=== PATIENT | male | born 1965 | race Caucasian/White ===

== ENCOUNTER 2021-03-15 18:08 | Emergency (ER) | payer OTHER, SELFPAY ==
--- NOTE | ~2021-03-15 | XR_ITS ---
EXAMINATION: XR finger 1st LT min 2V DATE: 03/15/2021 18:33 INDICATION: Left thumb laceration. TECHNIQUE: 3 views of left thumb were obtained. COMPARISON: None. FINDINGS: Bone alignment is normal. No fracture. There is mild osteoarthritis of first carpometacarpa l joint, first metacarpophalangeal joint, and first interphalangeal joint. IMPRESSION: 1. Mild polyarticular osteoarthritis. Reviewed, dictated and finalized at location A.
[2021-03-15 18:09] VITALS: BP 136/79; PULSE 85; RESP 14; TEMP 36.9; O2SAT 99
--- NOTE | 2021-03-15 18:34 | ED.WOUNDLAC ---
HPI - Wound/Laceration General Chief Complaint: Wound/Laceration Stated Complaint: l thumb lac Time Seen by Provider: 03/15/21 18:17 Source: patient Mode of arrival: ambulatory Limitations: no limitations History of Present Illness HPI narrative: This is a 56 year old male that presents to the ER for laceration to the left thumb sustained just prior to arrival. Reports he was using a utility knife and accidentally cut his finger. Reports bleeding and pain to the area. Denies decreased ROM or numbness. Related Data Home Medications Medication Instructions Recorded Confirmed bupropion HCl 200 mg tablet,12 hr 200 mg PO BID 07/03/19 01/30/21 sustained-release dextroamphetamine-amphetamine 10 10 mg PO TID 07/03/19 01/30/21 mg tablet Allergies Allergy/AdvReac Type Severity Reaction Status Date / Time No Known Drug Allergies Allergy Mild nkda Verified 03/15/21 18:21 Review of Systems Review of Systems: CONSTITUTIONAL: Denies fever SKIN: Reports laceration MUSCULOSKELETAL: Denies joint pain, or myalgia. NEUROLOGIC: Denies numbness All systems reviewed & are unremarkable except as noted in HPI and below PMFSH Past Medical History Medical History (Updated 03/15/21 @ 19:47 by Yvette Rico PA-C) BMI 27.0-27.9,adult Encounter for preventive health examination Encounter for routine adult health examination without abnormal findings Encounter for special screening examination for neoplasm of prostate Erectile dysfunction Hx of type 2 diabetes mellitus Hyperlipidemia On ferry terminal agent drug therapy Skin cancer screening Testicular dysfunction Vitamin B deficiency Vitamin D deficiency Surgical History Surgical History H/O gastric bypass H/O repair of right rotator cuff H/O vasectomy Family History Family History Father Family history of congenital heart disease Acute myocardial infarction Family history of coronary artery disease Grandparent Family history of arthritis Mother Family history of primary malignant neoplasm of liver Family history of malignant neoplasm of breast Family history of malignant neoplasm of breast in first degree relative Social History Social History Smoking status: Never smoker Second hand tobacco smoke exposure: No Alcohol intake: current Gender identity (if verbalized by the patient): Male Exam Narrative: GENERAL: Well-appearing, well-nourished, and in no acute distress. HEAD: Normocephalic, atraumatic. EYES: EOMI. EXTREMITIES: Normal range of motion. No edema. Left first finger distal phalanx with 1.5cm linear laceration into subcutaneous tissue with small portion of the distal nail involved SKIN: Warm, dry, no rash. NEURO: No focal deficits. Alert and oriented x3. PSYCH: Normal mood and affect Course Vital Signs Vital signs: Vital Signs Temperature 98.4 F 03/15/21 18:09 Pulse Rate 85 03/15/21 18:09 Respiratory Rate 14 03/15/21 18:09 Blood Pressure 136/79 03/15/21 18:09 Pulse Oximetry 99 03/15/21 18:09 Temperature 98.4 F 03/15/21 18:09 Pulse Rate 85 03/15/21 18:09 Respiratory Rate 14 03/15/21 18:09 Blood Pressure 136/79 03/15/21 18:09 Pulse Oximetry 99 03/15/21 18:09 Procedures Laceration Laceration 1: Date: 03/15/21 Time: 19:42 Site: hand Side (If applicable): left Size (cm): 1.5 Description: flap Depth: simple, single layer Local Anesthetic: lidocaine 1% Amount of anesthesia used (mL): 2 Pre-repair: irrigated ====== Skin Level ====== Skin layer closed with: nylon Size (cm): 4-0 Number of sutures: 2 Technique: simple, interrupted ====== Subcutaneous Layer ====== ====== Muscle Layer ====== ====== Tendon Layer ====== [facility]
[2021-03-15] MEDS: TETANUS,DIPHTHERIA,AC PERTUSSIS ADULT (0.5 ML) BOOSTRIX IM (18:56)
[2021-03-15 20:12] VITALS: BP 117/80; PULSE 78; RESP 14; O2SAT 100
== END 2021-03-15 20:02 | disposition home or self-care (01) ==
PROVIDERS: Emergency Provider Emergency Medicine; PCP Internal Medicine
DX: S61.012A Laceration without foreign body of left thumb without damage to nail, initial encounter (principal); E11.9 Type 2 diabetes mellitus without complications; E78.5 Hyperlipidemia, unspecified; E53.9 Vitamin B deficiency, unspecified; E55.9 Vitamin D deficiency, unspecified; M18.9 Osteoarthritis of first carpometacarpal joint, unspecified; Z23 Encounter for immunization; Z79.82 Long term (current) use of aspirin; W27.0XXA Contact with workbench tool, initial encounter
CPT/HCPCS: 12001; 73140; 90471; 90715; 99283

== ENCOUNTER → 2021-10-23 09:52 | Outpatient (CLI) | payer OTHER, SELFPAY ==
--- NOTE | ~2021-10-23 | XR_ITS ---
EXAMINATION: XR sacroiliac joints min 3V DATE: 10/23/2021 10:25 INDICATION: Sacrococcygeal disorders, not elsewhere classified. Pelvic pain. TECHNIQUE: 3 views of the sacrum and coccyx were obtained. COMPARISON: None. FINDINGS: There is lumbar dextroscoliosis and severe spondylosis. No fracture. There is mild osteoart hritis of the sacroiliac joints. IMPRESSION: 1. Mild osteoarthritis of the sacroiliac joints. Reviewed, dictated and finalized at location A.
--- NOTE | ~2021-10-23 | XR_ITS ---
XR lumbar spine min 4V DATE: 10/23/2021 10:25 INDICATION: Back pain TECHNIQUE: AP, lateral, coned lateral lumbosacral views. Flexion and extension upright lateral views COMPARISON: None FINDINGS: There is mild rotatory dextro scoliosis of the lumbar spine. Diffuse osteopenia. Degenerative spurring of the lower thoracic spine. There are 6 functional lumbar vertebrae. No fracture or bone destruction of the lumbar spine is evident. The lumbar pedicles are intact. Moderate degenerative disc disease of the lumbar spine; moderately severe degenerative disease at the lumbosacral articulation. No instability on flexion or extension is evident. The sacroiliac joints are intact. Sutures and clips are noted overlying the left upper quadrant of the abdomen. IMPRESSION: Diffuse osteopenia Mild rotatory dextroscoliosis Moderate to moderately severe degenerative disc disease of the lumbar spine Reviewed, dictated and finalized at location A.
== END ==
PROVIDERS: PCP Internal Medicine; Visit Provider Internal Medicine
DX: M47.28 Other spondylosis with radiculopathy, sacral and sacrococcygeal region (principal); M47.26 Other spondylosis with radiculopathy, lumbar region; R20.0 Anesthesia of skin; M41.9 Scoliosis, unspecified
CPT/HCPCS: 72110; 72202

== ENCOUNTER 2022-02-08 09:45 | Observation (INO) | payer OTHER, SELFPAY ==
[2022-02-08] VITALS (7 sets, daily range): BP systolic 127–153; BP diastolic 77–99; PULSE 66–90; RESP 16–19; TEMP 36.2–36.7; O2SAT 98–100; BMI 26.4
--- NOTE | ~2022-02-08 | CT_ITS ---
EXAMINATION: CT abdomen pelvis w con DATE: 02/08/2022 10:29 INDICATION: Left upper quadrant abdominal pain, dark tarry stool. History of gastric bypass. TECHNIQUE: Computed tomography (CT) of the abdomen and pelvis was performed with 100 CC Omnipaque 300 intravenous contrast. Automated exposure control and iterative reconstruction technique were employe d. Exam dose: 536.32 mGy-cm total exam DLP. COMPARISON: 05/18/2009 CT renal scan FINDINGS: The lung bases are clear of infiltrate or consolidation. Normal heart size. No pericardial or pleural effusion. Small stones are suggested at the dependent aspect of the gallbladder. No gallbladder wall thickening or pericholecystic fluid or fat stranding. No hepatic space-occupying mass lesion. No bile duct dila tation. Normal splenic size. No pancreatic mass lesion, calcification or ductal dilatation. Normal morphology of the adrenal glands. Mid left renal 1.6 mm nonobstructing left kidney stone. A couple of small renal cysts measuring up to 4 mm are noted. No renal mass lesions are noted otherwise. No ureteral calculus or hydroureteronephr osis is noted on either side. The urinary bladder is unremarkable. Prostate gland appears unremarkabl e. Normal caliber of the abdominal aorta. No intraperitoneal or retroperitoneal or pelvic mass lesion or adenopathy or ascites is detected. Postoperative change from gastric bypass surgery. No bowel obstruction or intraperitoneal free air. Small fat-containing umbilical hernia. Degenerative changes of the thoracic and lumbar spine. No suspicious osteolytic or osteoblastic lesio ns. IMPRESSION: Status post gastric bypass Probable cholelithiasis 1.6 mm nonobstructing left renal cyst 4 mm smaller left renal cysts Reviewed, dictated and finalized at [facility]. Reviewed, dictated and finalized at location A.
[2022-02-08 10:00] LABS: Basophils Absolute Auto 0.1 K/mm3 (0.0-0.1); Basophils Percent Auto 0.9 % (0.2-1.2); Eosinophils Absolute Auto 0.2 K/mm3 (0-0.3); Eosinophils Percent Auto 2.6 % (0-4.4); Hematocrit 37.3 % (42.0-52.0); Hemoglobin 11.9 g/dL (14.0-18.0); Immature Granulocyte Absolute 0.02 K/mm3 (0.00-0.031); Immature Granulocyte Percent A 0.3 % (0-0.5); Lymphocytes Absolute Auto 1.88 K/mm3 (0.9-3.2); Lymphocytes Percent Auto 28.8 % (18.3-44.2); Mean Corpuscular HGB Conc 31.9 g/dl (32-36); Mean Corpuscular Hemoglobin 31.7 pg (26-34); Mean Corpuscular Volume 99.5 fl (80-100); Mean Platelet Volume 9.5 fl (7.4-10.4); Monocytes Absolute Auto 0.4 K/mm3 (0.1-0.6); Monocytes Percent Auto 5.7 % (2.6-8.5); Neutrophils Percent Auto 61.7 % (45.5-73.1); Platelet Count Result 249 k/mm3 (150-375); Red Blood Count 3.75 M/mm3 (4.6-6.20); White Blood Count 6.5 K/mm3 (4.5-10.0)
[2022-02-08 10:11] LABS: INR 1.2; Prothrombin Time 14.3 Seconds (11.1-14.7)
[2022-02-08 10:12] LABS: Alanine Aminotransferase 34 U/L (6-50); Albumin Level 4.3 g/dL (3.5-5.1); Alkaline Phosphatase 63 U/L (38-126); Anion Gap 7 mmol/L (8-16); Aspartate Amino Transferase 39 U/L (17-59); Bilirubin,Total 0.4 mg/dL (0.2-1.3); Blood Urea Nitrogen 27 mg/dL (9-20); Calcium 8.9 mg/dL (8.4-10.2); Carbon Dioxide 26 mmol/L (22-30); Chloride 105 mmol/L (98-107); Estimated CRCL calculation 84 ml/min; Estimated Glomerular Filt Rate > 60; Glucose 89 mg/dL (65-110); Partial Thromboplastin Time 28.8 SECONDS (22.3-36.8); Potassium 4.6 mmol/L (3.4-5.0); Sodium 138 mmol/L (137-145)
--- NOTE | 2022-02-08 10:12 | ED.GENADULT ---
HPI - General Adult General Chief complaint: GI Bleed Stated complaint: sent by PCP Time Seen by Provider: 02/08/22 09:54 History of Present Illness HPI narrative: 57-year-old male history of gastric bypass presenting to the emergency department for evaluation of left upper quadrant pain and 2 days of dark tarry stools. Patient states he was in [place] and started developing some left upper quadrant pain. Patient describes it as a gnawing pain that was improved with food. Patient did take a Pepcid today. Patient does not take any Pepcid or Prilosec daily. Patient states that yesterday morning he began noticing some dark tarry stools and that it progressed throughout the day and into today. Patient denies any current abdominal pain. Patient does take a daily aspirin. Patient also takes Celebrex and has been increasing his Celebrex dose due to more frequent sciatic pain. Patient does have a history of a gastric bypass done in 2007. Patient denies any prior history of GI bleed. Related Data Home Medications Medication Instructions Recorded Confirmed bupropion HCl 200 mg tablet,12 hr 200 mg PO BID 07/03/19 02/08/22 sustained-release dextroamphetamine-amphetamine 10 10 mg PO TID 07/03/19 02/08/22 mg tablet (Adderall) atorvastatin 20 mg tablet 20 mg PO DAILY 02/08/22 02/08/22 calcium citrate 1,000 mg tablet 1,000 mg PO BID 02/08/22 02/08/22 celecoxib 200 mg capsule 200 mg PO BID 02/08/22 02/08/22 cetirizine 10 mg capsule (Zyrtec) 10 mg PO HS 02/08/22 02/08/22 icosapent ethyl 1 gram capsule 1 g PO BID 02/08/22 02/08/22 (Vascepa) mirtazapine 15 mg tablet 15 mg PO HS 02/08/22 02/08/22 multivitamin with minerals 1 tablet PO DAILY 02/08/22 02/08/22 multivitamin with minerals-folic tablet PO 02/08/22 acid 0.4 mg tablet Allergies Allergy/AdvReac Type Severity Reaction Status Date / Time morphine AdvReac Other Verified 02/08/22 09:59 Review of Systems Review of Systems: CONSTITUTIONAL: Denies fever, chills, or sweats. EYES: Denies visual changes, redness, or discharge. ENT: Denies rhinorrhea, congestion, sore throat, or otalgia. CARDIOVASCULAR: Denies chest pain, palpitations, or edema. RESPIRATORY: Denies cough or dyspnea. GASTROINTESTINAL: See HPI GENITOURINARY: Denies dysuria or hematuria. SKIN: Denies rash or itching. MUSCULOSKELETAL: Denies back pain, joint pain, or myalgia. NEUROLOGIC: Denies headache, numbness, or weakness. [facility] Past Medical History Medical History (Updated 02/08/22 @ 10:57 by Juventino Gaona MD) Anxiety BMI 25.0-25.9,adult BMI 27.0-27.9,adult Elevated glucose Encounter for preventive health examination Encounter for routine adult health examination without abnormal findings Encounter for special screening examination for neoplasm of prostate Erectile dysfunction History of stress test (~1997) Hx of type 2 diabetes mellitus Hyperlipidemia Impingement syndrome of right shoulder Iron deficiency Lumbar radiculopathy On senior living drug therapy Skin cancer screening Testicular dysfunction Vitamin B deficiency Vitamin D deficiency Surgical History Surgical History H/O gastric bypass (~12/2007) H/O vasectomy History of repair of left rotator cuff (~09/2013) Family History Family History Father Family history of congenital heart disease Acute myocardial infarction Family history of coronary artery disease Grandparent Family history of arthritis Mother Family history of primary malignant neoplasm of liver Family history of malignant neoplasm of breast Family history of malignant neoplasm of breast in first degree relative Unknown Cerebrovascular accident Social History Social History Smoking status: Never smoker Second hand tobacco smoke exposure: No Alcohol intake: current Drinks per week: 14 S
[2022-02-08] MEDS: SODIUM CHLORIDE 0.9% IV 1,000 ML 999 ML IV CONT (10:35)
[2022-02-08] MEDS: PANTOPRAZOLE SODIUM IV 40 MG VIAL 80 MG IV PUSH (10:35)
--- NOTE | 2022-02-08 13:26 | PM.IMHP ---
H&P: HPI History of Present Illness Date/Time: 02/08/22 13:26 Chief Complaint: Dark tarry stool Narrative: 57-year-old male with past medical history of gastric bypass presents to the ED with left upper quadrant and 2 days history dark tarry stool. He went to [facility] for vacation where he developed a left upper quadrant pain which was related to hunger and food made it better. Associated nausea but no vomiting. Two days ago he started having dark tarry stool. His been taking Celebrex every day since past 3 months for his right sciatic pain. He also was drinking during his vacation and also drinks 2 drinks every day since wall. Is status post gastric bypass in 2007. He also eats spicy food. He took some Tums when he got to the airport which helped relieve some of his pain. He denies any lightheadedness and dizziness he felt bloated and distended and hence came to the ER for evaluation. He is using his was down to Eleven and his normal is 15 as revealed in his laboratory data. No prior history of GI bleed. Review of Systems Review of Systems: - CONSTITUTIONAL: Denies weight loss, fever and chills. - HEENT: Denies changes in vision and hearing - RESPIRATORY: Denies SOB and cough. - CV: Denies palpitations and CP. - GI: Reports abdominal pain, nausea, denies vomiting and diarrhea. reports dark tarry stool - : Denies dysuria and urinary frequency. - MSK: Denies myalgia and joint pain. - SKIN: Denies rash and pruritus. - NEUROLOGICAL: Denies headache and syncope. - PSYCHIATRIC: Denies recent changes in mood. Denies anxiety and depression. [facility] Past Medical History Medical History (Updated 02/08/22 @ 10:57 by Juventino Gaona MD) Anxiety BMI 25.0-25.9,adult BMI 27.0-27.9,adult Elevated glucose Encounter for preventive health examination Encounter for routine adult health examination without abnormal findings Encounter for special screening examination for neoplasm of prostate Erectile dysfunction History of stress test (~1997) Hx of type 2 diabetes mellitus Hyperlipidemia Impingement syndrome of right shoulder Iron deficiency Lumbar radiculopathy On watermaster drug therapy Skin cancer screening Testicular dysfunction Vitamin B deficiency Vitamin D deficiency Surgical History Surgical History H/O gastric bypass (~12/2007) H/O vasectomy History of repair of left rotator cuff (~09/2013) Family History Family History Father Family history of congenital heart disease Acute myocardial infarction Family history of coronary artery disease Grandparent Family history of arthritis Mother Family history of primary malignant neoplasm of liver Family history of malignant neoplasm of breast Family history of malignant neoplasm of breast in first degree relative Unknown Cerebrovascular accident Social History Social History Smoking status: Never smoker Second hand tobacco smoke exposure: No Alcohol intake: current Drinks per week: 14 Substance use: never Substance use type: does not use Gender identity (if verbalized by the patient): Male Spiritual care concerns: No Meds Home Medications and Allergies Home Medications Medication Instructions Recorded Confirmed Type aspirin 81 mg tablet,delayed 81 mg PO DAILY #90 tabs 07/03/19 02/08/22 Rx release (Adult Aspirin Regimen) bupropion HCl 200 mg tablet,12 hr 200 mg PO BID 07/03/19 02/08/22 History sustained-release dextroamphetamine-amphetamine 10 10 mg PO TID 07/03/19 02/08/22 History mg tablet (Adderall) docusate sodium 100 mg capsule 100 mg PO BID #90 caps 07/03/19 02/08/22 Rx ferrous sulfate 325 mg (65 mg 325 mg PO DAILY #90 tabs 07/03/19 02/08/22 Rx iron) tablet mecobalamin (vitamin B12) 1,000 1,000 mcg sublingual DAILY #90 tabs
[2022-02-08 15:11] LABS: Hemoglobin 10.9 g/dL (14.0-18.0)
[2022-02-08 15:19] LABS: Lipase 110 U/L (23-300)
[2022-02-08] MEDS: buPROPion HCL SR (12HR) 100 MG TABCR 200 MG PO (21:18)
[2022-02-08] MEDS: MIRTAZAPINE 15 MG TABLET PO (21:18)
[2022-02-08] MEDS: SODIUM CHLORIDE 0.9% IV 1,000 ML 125 ML IV CONT (21:24)
[2022-02-08 23:17] LABS: Hematocrit 35.6 % (42.0-52.0); Hemoglobin 11.8 g/dL (14.0-18.0)
[2022-02-09] MEDS: SODIUM CHLORIDE 0.9% IV 1,000 ML 125 ML IV CONT ×2 (05:34→17:22)
[2022-02-09 05:36] VITALS: BP 128/73; PULSE 68; RESP 20; TEMP 36.3; O2SAT 100
[2022-02-09 06:12] LABS: Basophils Absolute Auto 0.1 K/mm3 (0.0-0.1); Basophils Percent Auto 1.2 % (0.2-1.2); Eosinophils Absolute Auto 0.2 K/mm3 (0-0.3); Eosinophils Percent Auto 3.7 % (0-4.4); Hematocrit 34.1 % (42.0-52.0); Hemoglobin 11.2 g/dL (14.0-18.0); Lymphocytes Absolute Auto 2.02 K/mm3 (0.9-3.2); Mean Corpuscular HGB Conc 32.8 g/dl (32-36); Mean Corpuscular Hemoglobin 32.4 pg (26-34); Mean Corpuscular Volume 98.6 fl (80-100); Monocytes Absolute Auto 0.4 K/mm3 (0.1-0.6); Monocytes Percent Auto 7.3 % (2.6-8.5); Neutrophils Absolute Auto 2.2 K/mm3 (1.3-6.7); Neutrophils Percent Auto 45.8 % (45.5-73.1); Platelet Count Result 216 k/mm3 (150-375); Red Blood Count 3.46 M/mm3 (4.6-6.20); Red Cell Distribution Width 15.3 % (11.5-14.5); White Blood Count 4.8 K/mm3 (4.5-10.0)
[2022-02-09 06:30] LABS: Alanine Aminotransferase 32 U/L (6-50); Albumin Level 3.6 g/dL (3.5-5.1); Alkaline Phosphatase 53 U/L (38-126); Anion Gap 4 mmol/L (8-16); Aspartate Amino Transferase 36 U/L (17-59); Bilirubin,Total 0.5 mg/dL (0.2-1.3); Blood Urea Nitrogen 14 mg/dL (9-20); Calcium 8.4 mg/dL (8.4-10.2); Carbon Dioxide 28 mmol/L (22-30); Chloride 108 mmol/L (98-107); Estimated CRCL calculation 84 ml/min; Estimated Glomerular Filt Rate > 60; Glucose 91 mg/dL (65-110); Magnesium 2.3 mg/dL (1.6-2.3); Potassium 4.3 mmol/L (3.4-5.0); Sodium 140 mmol/L (137-145)
--- NOTE | 2022-02-09 11:32 | WPDGICN ---
Assessment and Plan Assessment and plan (1) Melena: Code(s): K92.1 - Melena Status: Acute Assessment and Plan: Patient presents with black melenic stools. Confirmed to be Hemoccult-positive. Associated with mild decline in hemoglobin. Most suspicious for upper GI bleeding source. Patient has had some associated abdominal pain. Risk factors including use of Celebrex. Plan is for EGD to assess more thoroughly. Status of gastric bypass will be assessed at the same time. (2) H/O gastric bypass: Onset Date: ~12/2007 Code(s): Z98.84 - Bariatric surgery status Status: Acute Assessment and Plan: Patient has a distant history of gastric bypass surgery is done well with it. It is uncertain how this is associated with his recent melenic stools. Further evaluation after endoscopy. GI Consult Note Consult date/time: 02/09/22 11:32 Reason for consult: Blood in stool. HPI: Reagan Mane is a 57 year old male Presented to the emergency room last evening because of melenic stools. Patient has a distant history of a gastric bypass in 2007. Recently on vacation in [place]. Patient developed left upper quadrant and pain over about 5 day interval. Because of this he took Pepcid. He states the pain improved on eating. On Wednesday 2 days ago patient began to have black melenic stools. Patient has been on iron previously. He takes aspirin on a daily basis. Because of see attic pain he has been taking Celebrex. His family history is noncontributory. Upon presenting the emergency room was found have Hemoccult-positive stools and a mild decline in hemoglobin. Patient was admitted for further evaluation. Review of Systems Review of Systems: Review of systems noncontributory. [facility] Past Medical History Medical History (Updated 02/09/22 @ 11:35 by Pipe Crump MD) Anxiety BMI 25.0-25.9,adult BMI 27.0-27.9,adult Elevated glucose Encounter for preventive health examination Encounter for routine adult health examination without abnormal findings Encounter for special screening examination for neoplasm of prostate Erectile dysfunction History of stress test (~1997) Hx of type 2 diabetes mellitus Hyperlipidemia Impingement syndrome of right shoulder Iron deficiency Lumbar radiculopathy On correction drug therapy Skin cancer screening Testicular dysfunction Vitamin B deficiency Vitamin D deficiency Surgical History Surgical History H/O gastric bypass (~12/2007) H/O vasectomy History of repair of left rotator cuff (~09/2013) Family History Family History Father Family history of congenital heart disease Acute myocardial infarction Family history of coronary artery disease Grandparent Family history of arthritis Mother Family history of primary malignant neoplasm of liver Family history of malignant neoplasm of breast Family history of malignant neoplasm of breast in first degree relative Unknown Cerebrovascular accident Social History Social History Smoking status: Never smoker Second hand tobacco smoke exposure: No Alcohol intake: current Drinks per week: 14 Substance use: never Substance use type: does not use Gender identity (if verbalized by the patient): Male Spiritual care concerns: No Meds Home Medications and Allergies Home Medications Medication Instructions Recorded Confirmed Type aspirin 81 mg tablet,delayed 81 mg PO DAILY #90 tabs 07/03/19 02/08/22 Rx release (Adult Aspirin Regimen) bupropion HCl 200 mg tablet,12 hr 200 mg PO BID 07/03/19 02/08/22 History sustained-release dextroamphetamine-amphetamine 10 10 mg PO TID 07/03/19 02/08/22 History mg tablet (Adderall) docusate sodium 100 mg capsule 100 mg PO BID #90 caps 07/03/19 02/08/22 Rx ferr
[2022-02-09 12:53] VITALS: BP 138/71; PULSE 74; RESP 18; TEMP 36.4; O2SAT 100
[2022-02-09] MEDS: LACTATED RINGERS 1,000 ML 150 ML IV CONT (13:07)
--- NOTE | 2022-02-09 13:23 | WPDANESEPPF ---
Anes - Initial Pre Proc Eval Procedure: Operation Date: 02/09/22 13:30 Proposed Procedures p Esophagogastroduodenoscopy - Pipe Crump MD Date/Time: 02/09/22 13:23 Surgeon: Steven Hauser MD Pre Op Diagnosis: Upper GI Bleed Patient Data Age: 57 Gender: M Height: 1.78 m Weight: 83.5 kg Last Vital Signs Temp 97.6 F 02/09/22 12:53 Pulse 74 02/09/22 12:53 Resp 18 02/09/22 12:53 BP 138/71 02/09/22 12:53 Pulse Ox 100 02/09/22 12:53 O2 Del Method Room Air 02/09/22 12:53 Allergies Allergy/AdvReac Type Severity Reaction Status Date / Time morphine AdvReac Other Verified 02/09/22 13:03 Home Medications Medication Instructions Recorded Confirmed Type aspirin 81 mg tablet,delayed 81 mg PO DAILY #90 tabs 07/03/19 02/09/22 Rx release (Adult Aspirin Regimen) bupropion HCl 200 mg tablet,12 hr 200 mg PO BID 07/03/19 02/09/22 History sustained-release dextroamphetamine-amphetamine 10 10 mg PO TID 07/03/19 02/09/22 History mg tablet (Adderall) docusate sodium 100 mg capsule 100 mg PO BID #90 caps 07/03/19 02/09/22 Rx ferrous sulfate 325 mg (65 mg 325 mg PO DAILY #90 tabs 07/03/19 02/09/22 Rx iron) tablet mecobalamin (vitamin B12) 1,000 1,000 mcg sublingual DAILY #90 tabs 07/03/19 02/09/22 Rx mcg disintegrating tablet,sublingual thiamine HCl (vitamin B1) 100 mg 100 mg PO DAILY #90 tabs 07/03/19 02/09/22 Rx tablet tramadol 50 mg tablet 50 mg PO Q6H #30 tabs 01/15/22 02/09/22 Rx atorvastatin 20 mg tablet 20 mg PO DAILY 02/08/22 02/09/22 History calcium citrate 1,000 mg tablet 1,000 mg PO BID 02/08/22 02/09/22 History celecoxib 200 mg capsule 200 mg PO BID 02/08/22 02/09/22 History cetirizine 10 mg capsule (Zyrtec) 10 mg PO HS 02/08/22 02/09/22 History icosapent ethyl 1 gram capsule 1 g PO BID 02/08/22 02/09/22 History (Vascepa) mirtazapine 15 mg tablet 15 mg PO HS 02/08/22 02/09/22 History multivitamin with minerals 1 tablet PO DAILY 02/08/22 02/09/22 History sildenafil 100 mg tablet 100 mg PO DAILY 02/08/22 02/09/22 History Laboratory Tests 02/08/22 02/08/22 02/08/22 15:05 15:05 23:01 WBC RBC Hgb 10.9 g/dL L g/dL 11.8 g/dL L g/dL (14.0-18.0) (14.0-18.0) Hct 34.0 % L % 35.6 % L % (42.0-52.0) (42.0-52.0) MCV MCH MCHC RDW Plt Count MPV Immature Gran % (Auto) Neut % (Auto) Lymph % (Auto) [place] % (Auto) Eos % (Auto) Baso % (Auto) Lymph # (Auto) [place] # (Auto) Eos # (Auto) Baso # (Auto) Abs Immat Gran (auto) Absolute Neuts (auto) Absolute Nucleated RBC Nucleated RBC % Sodium Potassium Chloride Carbon Dioxide Anion Gap BUN Creatinine Estim Creat Clear Calc Estimated GFR Glucose Calcium Magnesium Total Bilirubin AST ALT Alkaline Phosphatase Total Protein Albumin Lipase 110 U/L U/L (23-300) 02/09/22 02/09/22 05:27 05:27 WBC 4.8 K/mm3 K/mm3 (4.5-10.0) RBC 3.46 M/mm3 L M/mm3 (4.6-6.20) Hgb 11.2 g/dL L g/dL (14.0-18.0) Hct 34.1 % L % (42.0-52.0) MCV 98.6 fl fl (80-100) MCH 32.4 pg pg (26-34) MCHC 32.8 g/dl g/dl (32-36) RDW 15.3 % H % (11.5-14.5) Plt Count 216 k/mm3 k/mm3 (150-375) MPV 10.0 fl fl (7.4-10.4) Immature Gran % (Auto) 0.0 % % (0-0.5) Neut % (Auto) 45.8 % % (45.5-73.1) Lymph % (Auto) 42.0 % % (18.3-44.2) [place] % (Auto) 7.3 % % (2.6-8.5) Eos % (Auto) 3.7 % % (0-4.4) Baso % (Auto) 1.2 % %
[2022-02-09 13:40] VITALS: BP 110/66; PULSE 82; RESP 22; O2SAT 100
[2022-02-09 13:50] VITALS: BP 104/71; PULSE 82; RESP 23; O2SAT 100
[2022-02-09 14:00] VITALS: BP 110/65; BP 127/78; PULSE 80; PULSE 82; RESP 16; RESP 23; TEMP 36.5; O2SAT 100; O2SAT 98
[2022-02-09 15:04] LABS: Hematocrit 34.6 % (42.0-52.0)
--- NOTE | 2022-02-09 18:31 | PM.IMPN ---
Progress Note: A&P Assessment and Plan (1) Acute upper gastrointestinal bleeding: Code(s): K92.2 - Gastrointestinal hemorrhage, unspecified Status: Acute (2) Lumbar radiculopathy: Code(s): M54.16 - Radiculopathy, lumbar region Status: Acute (3) Impingement syndrome of right shoulder: Code(s): M75.41 - Impingement syndrome of right shoulder Status: Acute (4) Hx of type 2 diabetes mellitus: Code(s): Z86.39 - Personal history of other endocrine, nutritional and metabolic disease Status: Acute (5) Hyperlipidemia: Qualifiers: Hyperlipidemia type: mixed hyperlipidemia Qualified Code(s): E78.2 - Mixed hyperlipidemia Code(s): E78.5 - Hyperlipidemia, unspecified Status: Acute (6) H/O gastric bypass: Onset Date: ~12/2007 Code(s): Z98.84 - Bariatric surgery status Status: Acute Plan # Melena/acute GI bleed PPI drip. Likely gastritis/PUD. Stop NSAIDs or Celebrex. Advised against drinking and spicy food. NPO and GI consult monitor H&H. H&H remains stable. Status post EGD 02/09/2022: Previous gastric surgery evidence with Nancy-en-Y. Small adherent clot in gastric remnant at the cardia of the stomach noted with no active bleeding. Monitor H&H and advance diet slowly If stable discharge home likely in a.m. Type 2 diabetes mellitus In remission after gastric bypass surgery Hyperlipidemia on medication which will be continued Lumbar radiculopathy ED HD: On Adderall History of gastric bypass 2007 Chronic use of NSAIDs DVT prophylaxis SCDs Code status full code Discussed with the patient and family at bedside Subjective Date/time seen: 02/09/22 18:31 Interval history: Underwent EGD today with findings noted. No further bowel movement noted reported. Denies any lightheadedness or dizziness. Review of Systems Review of Systems: All systems reviewed & are unremarkable except as noted in HPI and below Exam Narrative: APPEARANCE: Well appearing, no pain, no distress, well-nourished. HEAD: normocephalic, atraumatic. EYES: PERRLA/EOMI, conjunctivae clear. NOSE: Normal no drainage NECK: Supple. No adenopathy, no masses. RESPIRATORY: Airway patent, respirations nonlabored. Clear to auscultation bilaterally, no rales, rhonchi, wheezing. CARDIOVASCULAR: Regular rate and rhythm without murmurs rubs or gallops. ABDOMINAL: Soft, nontender, nondistended, normal bowel sounds MUSCULOSKELETAL: Moves all extremities. Strength/ROM intact, No edema, No calf tenderness. NEURO: Alert. Cranial nerves II through XII intact.? Grossly intact SKIN: Warm, dry. Normal Color Objective Data Vital Signs Vital Signs: Vital Signs - 24 hr 02/08/22 20:00 02/08/22 22:00 02/09/22 05:36 Temperature 97.3 F L 97.3 F L Pulse Rate 66 68 Respiratory Rate 18 20 Blood Pressure 127/79 128/73 Pulse Oximetry 99 100 Oxygen Delivery Room Air 02/09/22 08:00 02/09/22 12:53 02/09/22 13:40 Temperature 97.6 F Pulse Rate 74 82 Respiratory Rate 18 22 H Blood Pressure 138/71 110/66 Pulse Oximetry 100 100 Oxygen Delivery Room Air Room Air Room Air 02/09/22 13:50 02/09/22 14:00 02/09/22 14:00 Temperature 97.7 F Pulse Rate 82 82 80 Respiratory Rate 23 H 23 H 16 Blood Pressure 104/71 110/65 127/78 Pulse Oximetry 100 100 98 Oxygen Delivery Room Air Room Air Intake/Output Intake/Output: Intake & Output 02/06/22 02/07/22 02/08/22 02/09/22 23:59 23:59 23:59 23:59 Intake Total 1000 2950 Output Total 675 3640 Balance 325 -690 Meds/Results Medications: Active Medications Generic Name Dose Route Start Last Admin Trade Name Freq PRN Reason Stop Dose Admin Atorvastatin Calcium 20 mg 02/09/22 09:00 02/09/22 16:19 Atorvastatin 20 Mg Tablet PO Not Given DAILY SUNITA Bupropion HCl 200 mg 02/08/22 21:00 02/09/22 16:19 Bupropion Hcl Sr (12hr) 100 Mg Tabcr PO Not Given Q12HR SUNITA Calcium Carbonate 1,000 mg
[2022-02-09] MEDS: buPROPion HCL SR (12HR) 100 MG TABCR 200 MG PO (21:23)
[2022-02-09] MEDS: MIRTAZAPINE 15 MG TABLET PO (21:23)
[2022-02-09 22:00] VITALS: BP 138/81; PULSE 69; RESP 18; TEMP 36.1; O2SAT 100
[2022-02-10] MEDS: SODIUM CHLORIDE 0.9% IV 1,000 ML 125 ML IV CONT (01:17)
[2022-02-10 04:57] VITALS: BP 126/78; PULSE 73; RESP 20; TEMP 36.4; O2SAT 97
[2022-02-10 05:00] VITALS: BP 126/78; PULSE 73; RESP 20; TEMP 36.1; O2SAT 97
[2022-02-10 06:28] LABS: Basophils Percent Auto 0.9 % (0.2-1.2); Eosinophils Absolute Auto 0.2 K/mm3 (0-0.3); Eosinophils Percent Auto 4.2 % (0-4.4); Hematocrit 32.8 % (42.0-52.0); Hemoglobin 10.3 g/dL (14.0-18.0); Immature Granulocyte Absolute 0.01 K/mm3 (0.00-0.031); Immature Granulocyte Percent A 0.2 % (0-0.5); Lymphocytes Absolute Auto 1.63 K/mm3 (0.9-3.2); Lymphocytes Percent Auto 35.7 % (18.3-44.2); Mean Corpuscular HGB Conc 31.4 g/dl (32-36); Mean Corpuscular Hemoglobin 31.6 pg (26-34); Mean Corpuscular Volume 100.6 fl (80-100); Monocytes Absolute Auto 0.3 K/mm3 (0.1-0.6); Monocytes Percent Auto 7.2 % (2.6-8.5); Neutrophils Absolute Auto 2.4 K/mm3 (1.3-6.7); Neutrophils Percent Auto 51.8 % (45.5-73.1); Platelet Count Result 209 k/mm3 (150-375); Red Blood Count 3.26 M/mm3 (4.6-6.20); White Blood Count 4.6 K/mm3 (4.5-10.0)
[2022-02-10 06:43] LABS: Anion Gap 4 mmol/L (8-16); Blood Urea Nitrogen 20 mg/dL (9-20); Calcium 8.1 mg/dL (8.4-10.2); Carbon Dioxide 26 mmol/L (22-30); Chloride 109 mmol/L (98-107); Estimated CRCL calculation 94 ml/min; Estimated Glomerular Filt Rate > 60; Glucose 96 mg/dL (65-110); Potassium 4.2 mmol/L (3.4-5.0); Sodium 139 mmol/L (137-145)
[2022-02-10] MEDS: PANTOPRAZOLE 40 MG TABLET PO (08:57)
[2022-02-10] MEDS: ATORVASTATIN 20 MG TABLET PO (08:57)
[2022-02-10] MEDS: FERROUS SULFATE 324 MG TABLET PO (08:58)
[2022-02-10] MEDS: THIAMINE HCL 100 MG TABLET PO (08:58)
[2022-02-10] MEDS: buPROPion HCL SR (12HR) 100 MG TABCR 200 MG PO (08:58)
[2022-02-10] MEDS: THERAPEUTIC MULTIVITAMINS/MINERALS TAB (*BKC) 1 TABLET PO (08:58)
--- NOTE | 2022-02-10 12:04 | WPDGIPROGNO ---
Progress Note: A&P Assessment and Plan (1) Acute upper gastrointestinal bleeding: Code(s): K92.2 - Gastrointestinal hemorrhage, unspecified Status: Acute Assessment and Plan: No additional bleeding noted. Hemoglobin the centrally stable. Hemoglobin 11.9 on a presentation. Now after rehydration hemoglobin 10.3. (2) Melena: Code(s): K92.1 - Melena Status: Acute Assessment and Plan: Stools returned to normal color. (3) H/O gastric bypass: Onset Date: ~12/2007 Code(s): Z98.84 - Bariatric surgery status Status: Acute Assessment and Plan: Patient has history of gastric bypass. Small clot adherent to previous stapling in these gastric remnant. Likely this is stigmata from recent GI blood loss. Would not expect significant additional bleeding. Agree with advancing diet. Discharged today if hemoglobin remains stable. Probably best to stay on a PPI therapy for a month. Avoid NSAIDs. Subjective Date/time seen: 02/10/22 12:04 patient comfortable today. Tolerating diet. Denies any bleeding. Stools have returned to normal color. Review of Systems Review of Systems: Review of systems noncontributo Exam Narrative: Physical exam reveals patient to be alert. Vital signs stable. HEENT exam unremarkable. Lungs are clear. Heart without murmur. Abdomen bowel sounds present soft nontender. Objective Data Vital Signs Vital Signs: Vital Signs - 24 hr 02/09/22 12:53 02/09/22 13:40 02/09/22 13:50 Temperature 97.6 F Pulse Rate 74 82 82 Respiratory Rate 18 22 H 23 H Blood Pressure 138/71 110/66 104/71 Pulse Oximetry 100 100 100 Oxygen Delivery Room Air Room Air Room Air 02/09/22 14:00 02/09/22 14:00 02/09/22 20:00 Temperature 97.7 F Pulse Rate 82 80 Respiratory Rate 23 H 16 Blood Pressure 110/65 127/78 Pulse Oximetry 100 98 Oxygen Delivery Room Air Room Air 02/09/22 22:00 02/10/22 04:57 02/10/22 05:00 Temperature 97 F L 97.6 F 97 F L Pulse Rate 69 73 73 Respiratory Rate 18 20 20 Blood Pressure 138/81 126/78 126/78 Pulse Oximetry 100 97 97 Oxygen Delivery Intake/Output Intake/Output: Intake & Output 07/16/22 02/08/22 02/09/22 02/10/22 23:59 23:59 23:59 23:59 Intake Total 1000 2950 1340 Output Total 986 9020 775 Balance 325 -240 565 Meds/Results Medications: Active Medications Generic Name Dose Route Start Last Admin Trade Name Oriana PRN Reason Stop Dose Admin Atorvastatin Calcium 20 mg 02/09/22 09:00 02/10/22 08:57 Atorvastatin 20 Mg Tablet PO 20 mg DAILY SUNITA Administration Bupropion HCl 200 mg 02/08/22 21:00 02/10/22 08:58 Bupropion Hcl Sr (12hr) 100 Mg Tabcr PO 200 mg Q12HR SUNITA Administration Calcium Carbonate 1,000 mg 02/09/22 08:00 02/09/22 16:18 Calcium Carbonate (Oscal) 500 Mg Tablet PO Not Given BIDWM SUNITA Cyanocobalamin 1,000 mcg 02/09/22 09:00 02/09/22 16:19 Cyanocobalamin 1,000 Mcg Tablet PO Not Given [id number] SUNITA Ferrous Sulfate 324 mg 02/09/22 09:00 02/10/22 08:58 Ferrous Sulfate 324 Mg Tablet PO 324 mg DAILY SUNITA Administration Mirtazapine 15 mg 02/08/22 21:00 02/09/22 21:23 Mirtazapine 15 Mg Tablet PO 15 mg HS SUNITA Administration Miscellaneous Information 0 each 02/08/22 00:01 02/09/22 07:56 Adderrall = Nonformulary. Can Pt Bring From Home? XX 03/10/22 00:00 Not Given CLARIFY SUNITA Multivitamins/Calcium 1 tablet 02/09/22 09:00 02/10/22 08:58 Therapeutic Multivitamins/Minerals Tab (*Bkc) PO 1 tablet DAILY SUNITA Administration Non-Formulary Medication 10 mg 02/09/22 09:00 Dextroamphetamine-Amphetamine [Adderall] PO 03/11/22 08:59 TID SUNITA Pantoprazole Sodium 40 mg 02/09/22 09:00 02/10/22 08:57 Pantoprazole 40 Mg Tablet PO 40 mg QAM SUNITA Administration Thiamine HCl 100 mg 02/09/22 09:00 02/10/22 08:58 Thiamine Hcl 100 Mg Tablet PO 100 mg DAILY SUNITA Administration
[2022-02-10 12:05] LABS: Hematocrit 34.9 % (42.0-52.0); Hemoglobin 10.9 g/dL (14.0-18.0)
--- NOTE | 2022-02-10 13:07 | PM.DS ---
DS: Admitting Diagnosis Discharge Date 02/10/2022 Admitting Diagnosis GI bleed DS: Discharge Diagnosis Discharge Diagnosis (1) Acute upper gastrointestinal bleeding: Code(s): K92.2 - Gastrointestinal hemorrhage, unspecified Status: Acute (2) Lumbar radiculopathy: Code(s): M54.16 - Radiculopathy, lumbar region Status: Acute (3) Impingement syndrome of right shoulder: Code(s): M75.41 - Impingement syndrome of right shoulder Status: Acute (4) Hx of type 2 diabetes mellitus: Code(s): Z86.39 - Personal history of other endocrine, nutritional and metabolic disease Status: Acute (5) Hyperlipidemia: Qualifiers: Hyperlipidemia type: mixed hyperlipidemia Qualified Code(s): E78.2 - Mixed hyperlipidemia Code(s): E78.5 - Hyperlipidemia, unspecified Status: Acute (6) H/O gastric bypass: Onset Date: ~12/2007 Code(s): Z98.84 - Bariatric surgery status Status: Acute Plan # Melena/acute GI bleed started onPPI drip. Likely gastritis/PUD. Stop NSAIDs or Celebrex. Advised against drinking and spicy food. NPO and GI consult monitor H&H. H&H remains stable. Status post EGD 02/09/2022: Previous gastric surgery evidence with Nancy-en-Y. Small adherent clot in gastric remnant at the cardia of the stomach noted with no active bleeding. Monitor H&H and advance diet slowly H&H monitored and remained stable. Advance diet and tolerated well. Follow-up with GI as an outpatient for repeat EGD as deemed necessary. Will place on Protonix daily which he will continue to take. # Type 2 diabetes mellitus In remission after gastric bypass surgery # Hyperlipidemia on medication which will be continued # Lumbar radiculopathy # ADD: On Adderall # History of gastric bypass 2007 # Chronic use of NSAIDs # DVT prophylaxis SCDs # Code status full code DS: Summary Hospital Course Hospital Course: See above Time Spent with Patient Time attestation: Total time spent providing and/or coordinating discharge services: 40 minutes Exam Narrative: APPEARANCE: Well appearing, no pain, no distress, well-nourished. HEAD: normocephalic, atraumatic. EYES: PERRLA/EOMI, conjunctivae clear. NOSE: Normal no drainage NECK: Supple. No adenopathy, no masses. RESPIRATORY: Airway patent, respirations nonlabored. Clear to auscultation bilaterally, no rales, rhonchi, wheezing. CARDIOVASCULAR: Regular rate and rhythm without murmurs rubs or gallops. ABDOMINAL: Soft, nontender, nondistended, normal bowel sounds MUSCULOSKELETAL: Moves all extremities. Strength/ROM intact, No edema, No calf tenderness. NEURO: Alert. Cranial nerves II through XII intact.? Grossly intact SKIN: Warm, dry. Normal Color DS: Data Data Completed and Pending Labs on day of discharge: Labs from last 24 hours 02/10/22 02/10/22 02/10/22 11:57 05:49 05:49 WBC 4.6 RBC 3.26 L Hgb 10.9 L 10.3 L Hct 34.9 L 32.8 L MCV 100.6 H MCH 31.6 MCHC 31.4 L RDW 15.0 H Plt Count 209 MPV 10.0 Immature Gran % (Auto) 0.2 Neut % (Auto) 51.8 Lymph % (Auto) 35.7 [place] % (Auto) 7.2 Eos % (Auto) 4.2 Baso % (Auto) 0.9 Lymph # (Auto) 1.63 [place] # (Auto) 0.3 Eos # (Auto) 0.2 Baso # (Auto) 0.0 Abs Immat Gran (auto) 0.01 Absolute Neuts (auto) 2.4 Absolute Nucleated RBC 0.0 Nucleated RBC % 0.0 Sodium 139 Potassium 4.2 Chloride 109 H Carbon Dioxide 26 Anion Gap 4 L BUN 20 Creatinine 0.80 Estim Creat Clear Calc 94 Estimated GFR > 60 Glucose 96 Calcium 8.1 L 02/09/22 15:00 WBC RBC Hgb 11.0 L Hct 34.6 L MCV MCH MCHC RDW Plt Count MPV Immature Gran % (Auto) Neut % (Auto) Lymph % (Auto) [place] % (Auto) Eos % (Auto) Baso % (Auto) Lymph # (Auto) [place] # (Auto) Eos # (Auto) Baso # (Auto) Abs Immat Gran (auto) Absolute Neuts (auto) Absolute Nucleated RBC Nucleated RBC %
== END 2022-02-10 13:50 | disposition home or self-care (01) ==
LOC: ANHED 10:57 → ANH3MEDSUR 02-09 01:56
PROVIDERS: Internal Medicine Gastroenterology; Admitting Provider Family Medicine; Emergency Provider Emergency Medicine; PCP Internal Medicine; Visit Provider Internal Medicine
PROC: 0DJ08ZZ Inspection of Upper Intestinal Tract, Via Natural or Artificial Opening Endoscopic (ICD-10-PCS; CPT 43235; principal; 2022-02-09 13:30)
DX: K92.2 Gastrointestinal hemorrhage, unspecified (principal); K92.1 Melena; Z98.84 Bariatric surgery status; M54.16 Radiculopathy, lumbar region; M75.41 Impingement syndrome of right shoulder; Z86.39 Personal history of other endocrine, nutritional and metabolic disease; E78.2 Mixed hyperlipidemia; F41.9 Anxiety disorder, unspecified; E55.9 Vitamin D deficiency, unspecified; E53.9 Vitamin B deficiency, unspecified; Z79.1 Long term (current) use of non-steroidal anti-inflammatories (NSAID)
CPT/HCPCS: 43235; 36415; 74177; 80048; 80053; 83690; 83735; 85014; 85018; 85025; 85610; 85730; 86850; 86900; 86901; 96360; 96361; 96365; 96374; 96375; 99285; A9270; C9113; G0378; J2704; J7030; J7060; J7120; Q9967

== ENCOUNTER 2023-06-15 15:36 | Outpatient (CLI) | payer OTHER, SELFPAY ==
--- NOTE | ~2023-06-15 | XR_ITS ---
EXAMINATION: XR chest 2V 06/15/2023 15:51 INDICATION: Cough and wheezing PROCEDURE: 2 view chest COMPARISON: No prior studies for comparison. FINDINGS: The lungs are clear. The cardiomediastinal silhouette is within normal limits. There are no pleural effusions. There is no pneumothorax suspected. IMPRESSION: 1: NO ACUTE CARDIOPULMONARY DISEASE. Reviewed, dictated and finalized at location L. COPY EXAMINER
== END 2023-06-15 15:37 | disposition home or self-care (01) ==
PROVIDERS: PCP Internal Medicine; Visit Provider Internal Medicine
DX: R05.9 Cough, unspecified (principal); R06.2 Wheezing
CPT/HCPCS: 71046

== ENCOUNTER 2024-07-28 09:31 | Outpatient (CLI) | payer OTHER, SELFPAY ==
--- NOTE | ~2024-07-28 | XR_ITS ---
EXAMINATION: XR chest 2V DATE: 07/28/2024 09:49 INDICATION: Cough and left-sided chest pain TECHNIQUE: PA and lateral views of the chest were obtained. COMPARISON: Chest radiograph dated 06/15/2023 FINDINGS: Lungs remain clear with no focal airspace opacities, pulmonary edema, pleural effusion or pneumothora x. The cardiomediastinal silhouette is normal. Postoperative changes with surgical clips in the epiga stric region. IMPRESSION: 1. No acute cardiopulmonary disease. Reviewed, dictated and finalized at location B. [employer] OFFICER
== END 2024-07-28 09:32 | disposition home or self-care (01) ==
LOC: ANHIMG 09:34
PROVIDERS: PCP Internal Medicine; Visit Provider Internal Medicine
DX: R07.89 Other chest pain (principal); R07.81 Pleurodynia
CPT/HCPCS: 71046